=== PATIENT | male | born 1980 | race Caucasian/White ===

== ENCOUNTER 2018-03-16 09:43 | Emergency (ER) | payer MEDICAID ==
[~2018-03-16] VITALS: Ht 180.3 cm; Wt 82.6 kg
[2018-03-16 09:48] VITALS: BP_SYST 134
[2018-03-16 10:34] VITALS: BP_SYST 128
== END 2018-03-16 10:34 ==
LOC: SED 09:43
DX: M79.661 Pain in right lower leg (principal); R03.0 Elevated blood-pressure reading, without diagnosis of hypertension; Z88.2 Allergy status to sulfonamides
CPT/HCPCS: 73590-TC; 99283

== ENCOUNTER 2018-09-30 11:45 | Emergency (ER) | payer MEDICAID ==
[~2018-09-30] VITALS: Ht 185.4 cm; Wt 79.4 kg
--- NOTE | 2018-09-30 11:45 | NUR ---
Patient to ER h1 for evaluation. Side rails up. Report received from Shane REID.
--- NOTE | 2018-09-30 11:46 | NUR ---
Pt AAOx4 brought in by correctional officers for medical evaluation of patient's right hand. Patient has two lacerations to back of hand s/p fixing window when glass broke onto patient's hand x 5 days ago. Stitches were placed at time of incident, then subsequently removed at [facility] last night. Patient was given prescription antibiotics, but had no time to fill it. Swelling and erythema noted to site. Edges not well approximated, slight purulent discharge present. Patient reports 1/10 pain. No other injuries/complaints per pt/noted. Will continue to monitor.
--- NOTE | 2018-09-30 11:46 | NUR ---
Note janelle in EDM - 09/30/18 at 1225 by [email or web address] Pt AAOx4 brought in by correctional officers for medical evaluation of patient's right hand. Patient has two lacerations to back of hand s/p fixing window when glass broke onto patient's hand x 5 days ago. Stitches were placed at time of incident, then subsequently removed at [facility] last night. Patient was given prescription antibiotics, but has nottime to fill it. Swelling and erythema noted to site. Edges not well approximated, slight purulent discharge present. Patient reports 1/10 pain. No other injuries/complaints per pt/noted. Will continue to monitor.
[2018-09-30 11:50] VITALS: BP_SYST 124
--- NOTE | 2018-09-30 11:55 | NUR ---
ER Dr. Godinez examining patient.
--- NOTE | 2018-09-30 11:58 | NUR ---
Site cleansed with normal saline. Steri strips applied to wounds. Hand wrapped with guaze. Patient tolerated well.
--- NOTE | 2018-09-30 12:08 | NUR ---
Patient given written and verbal discharge instructions and verbalizes understanding. ER MD discussed with patient the results and treatment provided. Patient in stable condition. ID arm band removed. No Rx given. Pt instructed to fill antibiotic prescription provided by [facility]. Patient educated on pain management and to follow up with PMD. Pain Scale 1. Opportunity for questions provided and answered. Medication side effect fact sheet provided.
[2018-09-30 12:09] VITALS: BP_SYST 124
== END 2018-09-30 12:08 | disposition home or self-care (01) ==
LOC: SED 11:45
DX: S61.411A Laceration without foreign body of right hand, initial encounter (principal); L08.89 Other specified local infections of the skin and subcutaneous tissue; W26.8XXA Contact with other sharp object(s), not elsewhere classified, initial encounter; Y93.89 Activity, other specified; Y92.89 Other specified places as the place of occurrence of the external cause; Y99.8 Other external cause status
CPT/HCPCS: 99283